=== PATIENT | male | born 1935 | race Caucasian/White ===

== ENCOUNTER 2024-04-23 11:32 | Outpatient (REF) | payer MEDICARE, OTHER, SELFPAY ==
[2024-04-23 14:09] LABS: Vitamin D 25-OH Total 40.8 ng/mL (>30)
== END 2024-04-23 11:33 | disposition home or self-care (01) ==
LOC: HO.HMGCLDS 11:32
PROVIDERS: PCP Internal Medicine; Visit Provider Internal Medicine
DX: E55.9 Vitamin D deficiency, unspecified (principal); N35.014 Post-traumatic urethral stricture, male, unspecified; Z79.899 Other long term (current) drug therapy; Z23 Encounter for immunization
CPT/HCPCS: 36415; 82306; 90471; 90677; 96127; 99212